=== PATIENT | female | born 1930 | race Caucasian/White ===

== ENCOUNTER 2016-06-28 17:52 | Emergency (ER) | payer MEDICARE ==
[2016-06-28 20:13] LABS: HEMOGLOBIN 12.2 gm/dl (12.3-15.3); RED BLOOD COUNT 4.3 M/UL (4.00-5.10); WHITE BLOOD COUNT 1.6 K/UL (4.5-11.0)
[2016-06-28 20:28] LABS: BUN/CREATININE RATIO 23 (0-10)
== END 2016-06-28 21:45 | disposition home or self-care (01) ==
LOC: ER1 17:52
PROVIDERS: Specialist/Technologist Athletic Trainer
DX: J10.00 Influenza due to other identified influenza virus with unspecified type of pneumonia (principal)
CPT/HCPCS: 36415; 71250; 80053; 82550; 82553; 83735; 83880; 85025; 93005; 99284; J1956

== ENCOUNTER 2016-06-30 19:05 | Inpatient (IN) | payer MEDICARE ==
[~2016-06-30] VITALS: Ht 154.9 cm; Wt 41.3 kg
[2016-06-30 20:40] LABS: HEMOGLOBIN 12.9 gm/dl (12.3-15.3); RED BLOOD COUNT 4.53 M/UL (4.00-5.10)
[2016-06-30 20:41] LABS: WHITE BLOOD COUNT 4.2 K/UL (4.5-11.0)
[2016-06-30 20:59] LABS: BUN/CREATININE RATIO 30 (0-10)
[2016-07-01 08:08] LABS: HEMOGLOBIN 12.2 gm/dl (12.3-15.3); RED BLOOD COUNT 4.26 M/UL (4.00-5.10); WHITE BLOOD COUNT 3.5 K/UL (4.5-11.0)
[2016-07-01 08:11] LABS: BUN/CREATININE RATIO 34 (0-10)
[2016-07-01] MEDS ORDERED: LEVOFLOXACIN500 MG PO (09:18)
[2016-07-01] MEDS ORDERED: AMOXICILLIN875 MG PO (09:19)
[2016-07-02 04:15] LABS: HEMOGLOBIN 10.6 gm/dl (12.3-15.3); RED BLOOD COUNT 3.84 M/UL (4.00-5.10); WHITE BLOOD COUNT 3.2 K/UL (4.5-11.0)
[2016-07-02 04:33] LABS: BUN/CREATININE RATIO 18 (0-10)
[2016-07-03 04:21] LABS: HEMOGLOBIN 10.7 gm/dl (12.3-15.3); RED BLOOD COUNT 3.87 M/UL (4.00-5.10); WHITE BLOOD COUNT 4.4 K/UL (4.5-11.0)
[2016-07-03 04:43] LABS: BUN/CREATININE RATIO 18 (0-10)
[2016-07-04 04:24] LABS: HEMOGLOBIN 11.3 gm/dl (12.3-15.3); RED BLOOD COUNT 3.98 M/UL (4.00-5.10)
[2016-07-04 04:51] LABS: BUN/CREATININE RATIO 13 (0-10)
[2016-07-05 04:28] LABS: HEMOGLOBIN 10.6 gm/dl (12.3-15.3); RED BLOOD COUNT 3.79 M/UL (4.00-5.10); WHITE BLOOD COUNT 5.4 K/UL (4.5-11.0)
[2016-07-05 04:50] LABS: BUN/CREATININE RATIO 14 (0-10)
[2016-07-05] MEDS ORDERED: AUGMENTIN 875-1 EACH PO (11:55)
[2016-07-05] MEDS ORDERED: ENSURE LIQUID237 ML PO (11:56)
[2016-07-05] MEDS ORDERED: PROTONIX 40 MG40 M1 PO (11:58)
[2016-07-05] MEDS ORDERED: PROZAC10 MG PO (11:58)
[2016-07-05] MEDS ORDERED: DIFLUCAN150 MG PO (11:59)
[2016-07-05] MEDS ORDERED: MECLIZINE HCL25 M1 PO (12:02)
[2016-07-05 14:33] LABS: WHITE BLOOD COUNT 4.5 K/UL (4.5-11.0)
== END 2016-07-05 13:09 | disposition home or self-care (01) | DRG 640 ==
LOC: ER1 19:05 → ZEROF 07-01 06:08 → MED SURG 4 07-01 06:08
PROVIDERS: Family Medicine; Student in an Organized Health Care Education/Training Program; ADMIT Family Medicine
DX: E86.0 Dehydration (principal); J18.9 Pneumonia, unspecified organism; E44.1 Mild protein-calorie malnutrition; Z68.1 Body mass index [BMI] 19.9 or less, adult; K86.2 Cyst of pancreas; D61.818 Other pancytopenia; G43.909 Migraine, unspecified, not intractable, without status migrainosus; K44.9 Diaphragmatic hernia without obstruction or gangrene; R42 Dizziness and giddiness; Z82.3 Family history of stroke; Z82.5 Family history of asthma and other chronic lower respiratory diseases; Z82.49 Family history of ischemic heart disease and other diseases of the circulatory system; Z80.9 Family history of malignant neoplasm, unspecified
CPT/HCPCS: 36415; 71010; 74170; 80048; 80053; 80076; 81001; 82150; 82550; 82553; 83605; 83615; 83690; 83874; 84132; 84443; 84484; 85025; 85027; 86140; 87040; 87070; 87086; 87205; 94664; 99285; C9113; J1650; J1956; J2270; J2405; J2550; J7050; Q0163; Q9962

== ENCOUNTER 2016-09-17 19:05 | Emergency (ER) | payer MEDICARE ==
[~2016-09-17 19:05] MED LIST: AMOXICILLIN875 MG PO; AUGMENTIN 875-1 EACH PO; DIFLUCAN150 MG PO; ENSURE LIQUID237 ML PO; LEVOFLOXACIN500 MG PO; MECLIZINE HCL25 M1 PO; PROTONIX 40 MG40 M1 PO; PROZAC10 MG PO
== END 2016-09-17 19:50 | disposition home or self-care (01) ==
LOC: ER1 19:05
DX: L03.012 Cellulitis of left finger (principal); Z23 Encounter for immunization
CPT/HCPCS: 90471; 90714; 99283